=== PATIENT | female | born 1985 | race Caucasian/White ===

== ENCOUNTER → 2018-06-08 | Outpatient (CLI) | payer OTHER ==
[2018-06-08 11:24] LABS: HCT 37.5 % (34.0-46.0); HGB 12.5 gm/dL (11.4-16.0); MCHC 33.2 g/dL (31.0-37.0); MCV 87.3 fL (80.0-100.0); Mean Platelet Volume 6.8; Platelet Count 344 k/uL (150-450); RDW 12.5 % (11.5-15.5); WBC 10.6 k/uL (3.8-10.6)
[2018-06-08 11:40] LABS: Glucose 81 mg/dL (74-99)
--- NOTE | 2018-06-08 16:04 | US ---
EXAMINATION TYPE: Transabdominal DATE OF EXAM: 11/03/17 COMPARISON: NONE CLINICAL HISTORY: Z36 CONFIRM DATES. EXAM PERFORMED: Transvaginal (TV) and Transabdominal (TA) EXAM MEASUREMENTS: GESTATIONAL AGE / DATING Physician Established: not established Dates by LMP: (9 weeks/3 days) EDC: 01/08/2019 Dates by First Scan: no prior Dates by Current Scan for: (9 weeks/ 0 days) EDC: 01/11/2019 MATERNAL ANATOMY Uterus: 8.3 x 6.4 x 7.7 cm Right Ovary: 3.3 x 2.0 x 2.9 cm Left Ovary: 2.4 x 1.4 x 2.2 cm Post CDS / Adnexa: wnl Presence of free fluid: wnl Presence of corpus luteal cyst: no Presence of subchorionic bleed: no GESTATION / SURVEY CRL: 2.1 cm (8 weeks/5 days) MSD: 4.0 (9 weeks/2 days) Yolk Sac (normal less than 6mm): 3 Heart Rate: 139 bpm Rhythm: Normal IUP: Viable IUP Date of LMP: 04/03/2018 Beta HcG (if available): na IMPRESSION: 1. Single intrauterine gestation estimated at 8 weeks 5 days gestation based on crown-rump length. Ca rdiac activity measures 139 bpm.
[2018-06-08 18:04] LABS: HIV 1 AB Non-Reactive (Non-Reactive); HIV AB P24 Non-Reactive (Non-Reactive); HIV P24 AG Non-Reactive (Non-Reactive)
[2018-06-09 05:44] LABS: Toxoplasma Antibody (IgG) <3.0 IU/mL (<7.2); Toxoplasma Antibody (IgM) <3.0 AU/mL (<8.0)
== END | disposition home or self-care (01) ==
LOC: RADUSWWP 10:34
PROVIDERS: ATTEND Obstetrics & Gynecology
DX: O26.811 Pregnancy related exhaustion and fatigue, first trimester (principal); Z3A.08 8 weeks gestation of pregnancy
CPT/HCPCS: 76801; 76817; 82565; 82947; 85027; 86762; 86777; 86778; 86780; 86850; 86900; 86901; 87340; 87390

== ENCOUNTER → 2018-08-17 | Outpatient (CLI) | payer OTHER ==
--- NOTE | 2018-08-17 15:54 | US ---
EXAMINATION TYPE: US OB anatomy transabd DATE OF EXAM: 08/17/2018 COMPARISON: US first trimester June 08, 2018. HISTORY: O36.62X0 Large for Dates,Z34.82 TECHNIQUE: Transabdominal (TA) EXAM MEASUREMENTS: GESTATIONAL AGE / DATING Physician Established: (19 weeks/3 days) EDC: 01/08/2019 Dates by LMP: (19 weeks/0 days) EDC: 01/11/2019 Dates by First Scan: (19 weeks/0 days) EDC: 01/11/2019 Dates by Current Scan for: (19 weeks/5 days) EDC: 01/06/2019 SURVEY IUP: Single PLACENTA: Posterior PREVIA: Marginal BAY: 14.8 cm Normal CERVICAL LENGTH (transabdominal: norm > 3.0cm): 3.8 cm BIOMETRY PRESENTATION: Vertex LIE: Oblique BPD: 4.5 cm 19 weeks / 5 days HC: 16.8 cm 19 weeks / 3 days AC: 14.6 cm 19 weeks / 6 days FL: 3.2 cm 19 weeks / 6 days ESTIMATED WEIGHT IN GRAMS: 317.48 grams ESTIMATED WEIGHT IN LBS/OZ: 0 lbs. 11 oz. WEIGHT PERCENTAGE BASED ON ESTABLISHED DATE: 71.2 % HC/AC: 1.15 Normal FL/AC: 21.75 Normal HEART RATE: 154 bpm RHYTHM: Normal ANATOMY SEEN (within normal limits): * Lateral Vent (< 1 cm) 0.6 cm * Cisterna Magna (< 1.1 cm) 0.26 cm * Nuchal Fold (< 0.6 cm) 0.48 cm * Cerebellum (varies with age) 2.07 cm Choroid Plexus (bilateral) Midline Falx Cavus Septi Pellucidi Stomach Situs Diaphragm Kidneys (bilateral) Bladder Cord Insert Three Vessel Cord Longitudinal Spine Transverse Spine Arms (bilateral) Legs (bilateral) ANATOMY NOT SEEN: areas attempted, but patient is returning for the following after 2 techs attempte d these structures: Nose / Lips, area assessed but fetus less than 20 weeks for optimal measure. Four Chamber Heart Outflow tracts: LVOT/RVOT MATERNAL WALL MEASUREMENT: 5.02 cm from skin to anterior uterine wall (if exam limited due to body h abitus). Single live intrauterine gestation is redemonstrated. Marginal placenta is noted. Normal cephalad pre sentation to fetus is seen. No suspicious narrowing of cervix is present. Amniotic fluid index is demetrius culated within normal limits. biometry measurements are concordant and felt within normal limit s. Detailed anatomical survey shows no suspicious abnormality during real-time scanning. Some areas a re suboptimally assessed as detailed above. Saved images are felt within normal limits except for abo ve noted structures. IMPRESSION: As above, short-term follow-up ultrasound advised.
[2018-08-18 10:49] LABS: Alpha Fetoprotein (M.O.M) 0.97; B-HCG (M.O.M.) 1.96; Gestational Age (days) 3; Human Chorionic Gonadotropin 29.8 IU/mL; Inhibin A (M.O.M.) 1.04; Maternal Age at EDD (Yrs) 34; Smoker No; Unconjugated Estriol (M.O.M.) 0.76
== END ==
LOC: RADUSWWP 13:51
PROVIDERS: ATTEND Obstetrics & Gynecology
DX: O36.62X0 Maternal care for excessive fetal growth, second trimester, not applicable or unspecified (principal); Z3A.20 20 weeks gestation of pregnancy
CPT/HCPCS: 76811; 82105; 82677; 84702; 86336

== ENCOUNTER → 2018-08-30 | Outpatient (CLI) | payer OTHER ==
--- NOTE | 2018-08-30 12:36 | US ---
EXAMINATION TYPE: US OB Call Back DATE OF EXAM: 08/30/2018 COMPARISON: NONE CLINICAL HISTORY: OB CALL BACK. GESTATIONAL AGE / DATING Dates by Initial Survey Scan: (21 weeks/2 days) EDC: 04/03/2019 HEART RATE: 153 bpm RHYTHM: Normal ANATOMY SEEN (second anatomic survey look): Four Chamber Heart: Outflow tracts:? LVOT Nose / Lips: ANATOMY STILL NOT SEEN (may require an additional callback appt): Outflow tracts: RVOT MATERNAL WALL MEASUREMENT: 4.1 cm from skin to anterior uterine wall (if exam limited due to body pillai bitus). IMPRESSION: ANATOMY STILL NOT SEEN (may require an additional callback appt): Outflow tracts: RVOT
== END | disposition home or self-care (01) ==
LOC: RADUSWWP 11:04
PROVIDERS: ATTEND Obstetrics & Gynecology
DX: Z53.9 Procedure and treatment not carried out, unspecified reason (principal)

== ENCOUNTER 2018-12-17 10:53 | Outpatient (CLI) | payer OTHER ==
[2018-12-17 11:43] VITALS: PULSE 88; RESP 18; TEMP 97.1
[2018-12-17 11:50] LABS: Amorphous Sediment,Urine Rare /hpf; Appearance,Urine Cloudy (Clear); Bacteria,Urine Rare /hpf; Bilirubin,Urine Negative (Negative); Blood,Urine Negative (Negative); Color,Urine Yellow; Glucose,Urine (UA) Negative (Negative); Ketones,Urine Negative (Negative); Leukocyte Esterase,Urine Large (Negative); Mucus,Urine Occasional /hpf; Nitrite,Urine Negative (Negative); PH, Urine 5.5 (5.0-8.0); Protein,Urine Trace (Negative); Specific Gravity,Urine 1.018 (1.001-1.035); Squamous Epithelial Cell,Urine 9 /hpf (0-4); Urobilinogen,Urine <2.0 mg/dL (<2.0); WBC,Urine 21 /hpf (0-5)
[2018-12-17 11:58] LABS: Basophils % (A) 0 %; Eosinophils # (A) 0.1 k/uL (0-0.7); Eosinophils % (A) 1 %; HGB 11.6 gm/dL (11.4-16.0); Lymphocytes # (A) 1.8 k/uL (1.0-4.8); Lymphocytes % (A) 17 %; MCH 28.8 pg (25.0-35.0); MCHC 33.2 g/dL (31.0-37.0); MCV 86.6 fL (80.0-100.0); Mean Platelet Volume 7.5; Monocytes # (A) 0.6 k/uL (0-1.0); Monocytes % (A) 5 %; Neutrophils % (A) 74 %; Platelet Count 308 k/uL (150-450); RBC 4.04 m/uL (3.80-5.40); RDW 14.8 % (11.5-15.5); WBC 10.9 k/uL (3.8-10.6)
[2018-12-17 12:09] LABS: ALT 21 U/L (9-52); AST 20 U/L (14-36); Blood Urea Nitrogen 6 mg/dL (7-17); LDH 411 U/L (313-618); Uric Acid 4.6 mg/dL (3.7-7.4)
[2018-12-17 12:40] VITALS: BP 145/84
--- NOTE | 2018-12-17 17:19 | P.MSEPDOC ---
Presenting Problems - Arrival Data Date of Arrival on Unit: 12/17/18 Time of Arrival on Unit: 11:10 Mode of Transport: Ambulatory - Complaint OB-Reason for Admission/Chief Complaint: PIH Medical History - Information : 4 Para: 1 Term: 1 : 0 Abortions: Spontaneous or Elective: 0 Number of Living Children: 0 - Gestational Age Gestational Age by MARTHA (wks/days): 36 Weeks and 6 Days - History Complications: Other Comment: gestation hypertension Review of Systems - Review of Systems Constitutional: No problems Breast: No problems ENT: No problems Cardiovascular: No problems Respiratory: No problems Gastrointestinal: No problems Genitourinary: No problems Musculoskeletal: No problems Neurological: No problems Skin: No problems Comment: [facility] work up. blood pressure elevated in office Vital Signs - Temperature Temperature: 97.1 F Temperature Source: Temporal Artery Scan - Pulse Right Radial Pulse Rate: 88 Pulse Assessment Method: Automatic Cuff - Respirations Respiratory Rate: 18 Oxygen Delivery Method: Room Air - Blood Pressure Right Arm Blood Pressure: 145/84 Blood Pressure Mean: 104 Blood Pressure Source: Automatic Cuff Medical Screen Scoring (Pre) - Cervical Exam Dilation: Exam Deferred Effacement: Exam Deferred Membranes: Intact - Uterine Contractions Frequency: N/A Duration: N/A Intensity: N/A - Maternal Vital Signs Maternal Temperature: N/A Maternal Blood Pressure: N/A Signs of Preeclampsia: N/A Maternal Respirations: N/A - Pain Assessment Pain Scale Used: Numeric (1 - 10) Pain Intensity: 0 Pain Behavior: Vocalization - Maternal Trauma Maternal Trauma: N/A - Assessment Baseline FHR: 140 Heart Rate - NICHD Category: Category I (Normal) = 0 NST: Reactive Position: N/A Station: N/A - Total Score Total Score (Pre): 0 - Level of Risk Level of Risk: N/A Physician Notification (Pre) - Physician Notified Physician Notified Date: 12/17/18 Physician Notified Time: 11:10 Physician/Practitioner Notifed:: erasto Spoke With: erasto New Order Received: No - Notification Comment Comment: slip of orders sent from office with pt. Medical Screen Scoring (Post) - Cervical Exam Dilation: Exam Deferred Effacement: Exam Deferred Membranes: Intact - Uterine Contractions Frequency: N/A Duration: N/A Intensity: N/A - Maternal Vital Signs Maternal Temperature: N/A Maternal Blood Pressure: N/A Signs of Preeclampsia: N/A Maternal Respirations: N/A - Pain Assessment Pain Scale Used: Numeric (1 - 10) Pain Intensity: 0 Pain Behavior: Vocalization - Total Score Total Score (Post): 0 - Post Treatment Level of Risk Post Treatment Level of Risk: Low (0-5) Physician Notification (Post) - Physician Notified Physician Notified Date: 12/17/18 Physician Notified Time: 12:30 Physician/Practitioner Notified:: erasto Spoke With: erasto New Order Received: Yes (discharge home with instructions) - Notification Comment Comment: to return to office morning for nst and bp check. possible induction of labor on thursday Disposition - Disposition OB Disposition: Discharge to home Discharge Date: 12/17/18 Discharge Time: 12:35 I agree with the RN Medical Screening Exam: Yes Risk & Benefit of care provided described in d/c instruction: Yes Diagnosis: GESTATIONAL HTN W/O SIGNIFICANT PROTEINURIA, THIRD TRIMESTER
== END 2018-12-17 12:35 | disposition home or self-care (01) ==
LOC: FBPOP 10:53
PROVIDERS: ATTEND Obstetrics & Gynecology
DX: O13.3 Gestational [pregnancy-induced] hypertension without significant proteinuria, third trimester (principal); Z3A.36 36 weeks gestation of pregnancy
CPT/HCPCS: 59025; 82570; 84156; 82565; 83615; 84450; 84460; 84520; 84550; 85025; 81001; G0463; 99215

== ENCOUNTER 2018-12-21 05:55 | Inpatient (IN) | payer OTHER ==
[2018-12-21] MEDS: LACTATED RINGERS 1,000 ML IV SCH ×3 (06:16→13:42)
[2018-12-21] MEDS ORDERED: OXYTOCIN 10 UNIT/ML 1 ML VIAL IM PRN (06:23)
[2018-12-21] MEDS ORDERED: LIDOCAINE 0.5% (PF) 5 MG/ML (50 ML SDV) SQ PRN (06:23)
[2018-12-21] MEDS ORDERED: AMPICILLIN 2,000 MG in SODIUM CHLORIDE 0.9% 100 ML IVPB STA (06:23)
[2018-12-21] MEDS ORDERED: CARBOPROST TROMETHAMINE 250 MCG/ML 1 ML AMP IM PRN (06:23)
[2018-12-21] MEDS ORDERED: METHYLERGONOVINE 0.2 MG/ML 1 ML AMP IM PRN (06:23)
[2018-12-21] MEDS ORDERED: TERBUTALINE 1 MG/ML VIAL SQ PRN (06:23)
[2018-12-21] MEDS ORDERED: OXYTOCIN 30 UNITS/500 ML NS 30 UNIT in SALINE 1 500ML.BAG IV SCH (06:30)
[2018-12-21] MEDS ORDERED: LACTATED RINGERS 1,000 ML IV SCH (06:30)
[2018-12-21 06:39] VITALS: BMI 44.1
[2018-12-21 06:59] LABS: Basophils % (A) 0 %; Eosinophils # (A) 0.2 k/uL (0-0.7); Eosinophils % (A) 1 %; HCT 36.1 % (34.0-46.0); HGB 11.8 gm/dL (11.4-16.0); Lymphocytes # (A) 2.6 k/uL (1.0-4.8); Lymphocytes % (A) 19 %; MCH 28.1 pg (25.0-35.0); MCHC 32.8 g/dL (31.0-37.0); MCV 85.8 fL (80.0-100.0); Mean Platelet Volume 7.5; Monocytes # (A) 0.7 k/uL (0-1.0); Monocytes % (A) 5 %; Neutrophils # (A) 10.1 k/uL (1.3-7.7); Neutrophils % (A) 72 %; Platelet Count 349 k/uL (150-450); RBC 4.21 m/uL (3.80-5.40); RDW 14.6 % (11.5-15.5)
[2018-12-21] MEDS: AMPICILLIN 1,000 MG in SODIUM CHLORIDE 0.9% 50 ML IVPB SCH ×3 (10:27→18:38)
[2018-12-21] MEDS ORDERED: SODIUM CHLORIDE 0.9% 100 ML BAG ONE (13:15)
[2018-12-21] MEDS ORDERED: ROPIVACAINE 5MG/ML 20ML VIAL ONE (13:15)
[2018-12-21] MEDS ORDERED: fentaNYL (PF) 50 MCG/ML 5 ML AMP ONE (13:15)
[2018-12-21] MEDS ORDERED: CITRIC ACID-SODIUM CITRATE 15 ML CUP PO ONE (22:22)
[2018-12-21] MEDS ORDERED: ceFAZolin IN SWFI 2 GM/20 ML SYRINGE IVP ONE (22:22)
[2018-12-21] MEDS ORDERED: fentaNYL (PF) 50 MCG/ML 2 ML AMP ONE (22:44)
[2018-12-21] MEDS ORDERED: ONDANSETRON 4 MG/2 ML VIAL ONE (22:44)
[2018-12-21] MEDS ORDERED: KETOROLAC 30 MG/ML 1 ML VIAL ONE (22:44)
[2018-12-21] MEDS ORDERED: CHLOROPROCAINE 3% 30 MG/ML 20 ML VIAL ONE (22:44)
[2018-12-21] MEDS ORDERED: IBUPROFEN 600 MG TAB PO PRN (23:21)
[2018-12-21] MEDS ORDERED: METOCLOPRAMIDE 5 MG/ML 2 ML VIAL IVP PRN (23:21)
[2018-12-21] MEDS ORDERED: diphenhydrAMINE 25 MG CAP PO PRN (23:21)
[2018-12-21] MEDS ORDERED: ACETAMINOPHEN TAB 325 MG TAB PO PRN (23:21)
[2018-12-21] MEDS ORDERED: diphenhydrAMINE 50 MG CAP PO PRN (23:21)
[2018-12-21] MEDS ORDERED: NALOXONE 0.4 MG/ML 1 ML VIAL IV PRN ×2 (23:21→23:28)
[2018-12-21] MEDS ORDERED: ZOLPIDEM 5 MG TAB PO PRN (23:21)
[2018-12-21] MEDS ORDERED: diphenhydrAMINE 50 MG/ML 1 ML VIAL IVP PRN ×2 (23:21)
[2018-12-21] MEDS ORDERED: HYDROcodone/APAP 7.5-325MG 1 EACH TAB PO PRN (23:21)
[2018-12-21] MEDS ORDERED: ONDANSETRON 4 MG/2 ML VIAL IVP PRN (23:21)
[2018-12-21] MEDS ORDERED: SIMETHICONE 80 MG CHEWABLE PO PRN (23:21)
[2018-12-21] MEDS ORDERED: HYDROMORPHONE (PF) 10 MG in SODIUM CHLORIDE 0.9% 49 ML IV PRN (23:28)
--- NOTE | 2018-12-21 23:28 | P.OP ---
Date of Procedure: 12/21/18 Preoperative Diagnosis: 1. at 37 weeks 3 days 2. arrest of descent 3. occiput posterior 4. gestational hypertension Postoperative Diagnosis: 1. at 37 weeks 3 days 2. arrest of descent 3. occiput posterior 4. gestational hypertension Procedure(s) Performed: Primary low transverse Anesthesia: spinal Surgeon: Jazmin Mills Semiconductor Engineer #1: Joleen Gu Estimated Blood Loss (ml): 600 IV fluids (ml): 700 Urine output (ml): 100 Pathology: other (Placenta) Condition: stable Disposition: floor Indications for Procedure: 33-year-old presented at 37 weeks and 3 days for induction of labor due to gestational hypertension. Her cervix was 3-4 centers dilated, 70% effaced, and -2 station. She was gautam irregularly. heart tones 130s with moderate variability and reactive, category 1 tracing. Amniotomy was performed at 7:45 AM and clear fluid noted. Pitocin had already been started. She progressed throughout the day and when she was uncomfortable she did get an epidural. She progressed to anterior lip, pushed a few times but was unable to reduce this anterior lip. The baby was not moving in the pelvis despite adequate pushing and contractions, and the baby was known to be an OP position. Informed consent was obtained and section was called. Operative Findings: Viable male, Apgars 9, 9, weight 7 lbs. 9 oz. Normal uterus, tubes, ovaries. Description of Procedure: Patient was taken to the operating room where epidural anesthesia was found be adequate. She was prepped and draped in normal sterile fashion in dorsal supine position with a leftward tilt. Pfannenstiel skin incision was made the scalpel and carried through to the underlying layer of fascia with the scalpel. Fascia was incised in midline and carried bilaterally with the Enciso scissors. The superior aspect of the fascial incision was grasped with Panna Maria clamps elevated and the underlying rectus muscles dissected off with the Enciso's. Attention was then turned to inferior aspect of same incision which in a similar fashion was grasped tented up and the underlying rectus muscles dissected off with the Enciso's. The rectus muscles were the midline and the peritoneum was identified tented up and entered sharply with the scalpel. The incision was extended superiorly and inferiorly with good visualization of the bladder. The bladder blade was inserted and the vesicouterine peritoneum was incised the Metzenbaums then carried bilaterally and bladder flap created digitally. A low transverse incision was then made on the uterus with the scalpel. This was carried bilaterally and digital manner. 's head delivered atraumatically, nose and mouth bulb suctioned, cord clamped and cut, infant handed off to waiting nurses. Apgars 9,9, weight 7 lbs. 9 oz. Placenta delivered manually, intact with three-vessel cord. The uterus is exteriorized and cleared of all clots and debris. The uterine incision was closed with 0 Vicryl in a running locked fashion. Second layer of the same sutures used in imbricating fashion to obtain excellent hemostasis. Bladder flap was then reapproximated using 2-0 Kristofer ryl in a running fashion. Both ovaries and tubes appeared normal. The uterus was placed back into the abdomen. The peritoneum was reapproximated using 2-0 Vicryl in a running fashion. The fascia was reapproximated using 0 Vicryl in a running fashion. The subcutaneous tissues closed with 3-0 Vicryl running fashion. The skin was closed kevin. Patient tolerated the procedure well, sponge and instrument counts were correct times 2 and she was taken to the recovery room in stable condition.
[2018-12-21] MEDS ORDERED: OXYTOCIN 20 UNITS/1000 ML NS 1,000 ML IV SCH (23:30)
[2018-12-22 05:43] LABS: Basophils % (A) 0 %; Eosinophils # (A) 0.1 k/uL (0-0.7); Eosinophils % (A) 1 %; HCT 31.3 % (34.0-46.0); HGB 10.3 gm/dL (11.4-16.0); Lymphocytes # (A) 1.4 k/uL (1.0-4.8); Lymphocytes % (A) 9 %; MCH 28.3 pg (25.0-35.0); MCHC 32.7 g/dL (31.0-37.0); MCV 86.6 fL (80.0-100.0); Mean Platelet Volume 7.3; Monocytes # (A) 0.7 k/uL (0-1.0); Monocytes % (A) 4 %; Neutrophils # (A) 13.3 k/uL (1.3-7.7); Neutrophils % (A) 84 %; Platelet Count 309 k/uL (150-450); RBC 3.62 m/uL (3.80-5.40); RDW 14.2 % (11.5-15.5); WBC 15.7 k/uL (3.8-10.6)
--- NOTE | 2018-12-22 07:38 | P.HPOB ---
History of Present Illness H&P Date: 12/22/18 Chief Complaint: Induction of labor, gestational hypertension 33 year old presents at 37 weeks 3 days for induction of labor. HEr cervix was 3/70/-2 and she was gautam irregularly. heart tones 130s with moderate variability and reactive. Review of Systems All systems: negative Constitutional: Denies chills, Denies fever Eyes: denies blurred vision, denies pain Ears, nose, mouth and throat: Denies headache, Denies sore throat Cardiovascular: Denies chest pain, Denies shortness of breath Respiratory: Denies cough Gastrointestinal: Denies abdominal pain, Denies diarrhea, Denies nausea, Denies vomiting Genitourinary: Denies dysuria, Denies hematuria Musculoskeletal: Denies myalgias Integumentary: Denies pruritus, Denies rash Neurological: Denies numbness, Denies weakness Psychiatric: Denies anxiety, Denies depression Endocrine: Denies fatigue, Denies weight change Past Medical History Past Medical History: Thyroid Disorder Additional Past Medical History / Comment(s): OB history: First was elective , second full-term vaginal delivery 7 lbs. 14 oz., third elective , this is her fourth . She has had care with nd since 8 weeks. Blood type O+, antibodies negative, rubella immune, treponemal antibody negative, HIV nonreactive, hep is B-, HIV nonreactive, toxoplasmosis negative. GBS positive. She's had some elevated blood pressures throughout the and is seen [facility] as well. History of Any Multi-Drug Resistant Organisms: None Reported Past Surgical History: No Surgical Hx Reported Additional Past Surgical History / Comment(s): Wrist surgery Past Anesthesia/Blood Transfusion Reactions: No Reported Reaction Past Psychological History: Anxiety, Depression Smoking Status: Former smoker Past Alcohol Use History: Occasional Past Drug Use History: Marijuana - Past Family History Mother Family Medical History: No Reported History Medications and Allergies Home Medications Medication Instructions Recorded Confirmed Type Pnv,Calcium 72/Iron/Folic Acid 1 each PO DAILY 12/17/18 12/21/18 History [ Plus Tablet] Aspirin [Children's Aspirin] 1 tab PO ONCE 12/21/18 12/21/18 History Allergies Allergy/AdvReac Type Severity Reaction Status Date / Time No Known Allergies Allergy Verified 12/17/18 11:20 Exam Osteopathic Statement: *. No significant issues noted on an osteopathic structural exam other than those noted in the History and Physical/Consult. Vital Signs Temp Pulse Resp BP Pulse Ox 12/22/18 04:00 97.2 F L 62 14 103/59 96 12/22/18 01:34 96.7 F L 96 16 142/67 96 12/22/18 01:04 97.6 F 95 16 142/69 96 12/22/18 00:30 98.1 F 99 16 160/74 98 12/22/18 00:19 97.5 F L 99 16 145/66 95 12/22/18 00:04 97.6 F 90 16 145/68 100 12/22/18 00:00 97.1 F L 90 16 145/68 100 12/21/18 23:49 97.2 F L 103 H 16 134/58 98 12/21/18 23:34 97.6 F 116 H 16 107/49 98 12/21/18 23:30 98 Intake and Output 12/21/18 12/22/18 12/22/18 22:59 06:59 14:59 Output Total 200 Balance -200 Output: Urine 200 Other: Voiding Method Indwelling Catheter # Voids 3 Heart: Regular rate and rhythm Lungs: Clear to auscultation bilaterally Abdomen: Soft, nontender Extremities: Negative Homans sign Results Result Diagrams: 12/22/18 05:28 Abnormal Lab Results - Last 24 Hours (Table) 12/22/18 Range/Units 05:28 WBC 15.7 H (3.8-10.6) k/uL RBC 3.62 L (3.80-5.40) m/uL Hgb 10.3 L (11.4-16.0) gm/dL Hct 31.3 L (34.0-46.0) % Neutrophils # 13.3 H (1.3-7.7) k/uL Assessment and Plan (1) Normal labor Current Visit: Yes Status: Acute Code(s): O80 - ENCOUNTER FOR FULL-TERM UNCOMPLICATED DELIVERY; Z37.9 - OUTCOME OF DELIVERY, UNSPECIFIED SNOMED Code(s): 83175921 Plan: 1. Induction of labor with amniotomy and Pitocin 2. Anticipate normal vaginal delivery
--- NOTE | 2018-12-22 07:39 | P.PNOBGPC ---
Subjective - Subjective Principal diagnosis: Status post primary low transverse postop day #1 Interval history: Patient seen and examined. Denies nausea, vomiting, chest pain, shortness of breath or calf pain. Her pain is well-controlled with TACTICAL RESPONSE GROUP OFFICER. Patient reports: Reports appetite normal, Reports voiding normally, Reports pain well controlled, Reports ambulating normally [place]: doing well Objective - Vital Signs Latest vital signs: Vital Signs Temp Pulse Resp BP Pulse Ox 12/22/18 04:00 97.2 F L 62 14 103/59 96 12/22/18 01:34 96.7 F L 96 16 142/67 96 12/22/18 01:04 97.6 F 95 16 142/69 96 12/22/18 00:30 98.1 F 99 16 160/74 98 12/22/18 00:19 97.5 F L 99 16 145/66 95 12/22/18 00:04 97.6 F 90 16 145/68 100 12/22/18 00:00 97.1 F L 90 16 145/68 100 12/21/18 23:49 97.2 F L 103 H 16 134/58 98 12/21/18 23:34 97.6 F 116 H 16 107/49 98 12/21/18 23:30 98 Intake and Output 12/21/18 12/22/18 12/22/18 22:59 06:59 14:59 Output Total 200 Balance -200 Output: Urine 200 Other: Voiding Method Indwelling Catheter # Voids 3 - Exam Lungs: bilateral: normal Chest: Normal S1, Normal S2 Extremities: Present: normal Abdomen: Present: normal appearance, soft. Absent: distention, tenderness Incision: Present: normal, dry, intact Uterus: Present: normal, firm - Labs Labs: Abnormal Lab Results - Last 24 Hours (Table) 12/22/18 Range/Units 05:28 WBC 15.7 H (3.8-10.6) k/uL RBC 3.62 L (3.80-5.40) m/uL Hgb 10.3 L (11.4-16.0) gm/dL Hct 31.3 L (34.0-46.0) % Neutrophils # 13.3 H (1.3-7.7) k/uL Assessment and Plan (1) Normal labor Current Visit: Yes Status: Resolved Code(s): O80 - ENCOUNTER FOR FULL-TERM UNCOMPLICATED DELIVERY; Z37.9 - OUTCOME OF DELIVERY, UNSPECIFIED SNOMED Code(s): 40716256 (2) Status post primary low transverse section Current Visit: Yes Status: Acute Code(s): Z98.891 - HISTORY OF UTERINE SCAR FROM PREVIOUS SURGERY SNOMED Code(s): 606958594 Plan: 1. DC TACTICAL RESPONSE GROUP OFFICER, oral pain meds 2. Increase ambulation 3. Advanced diet 4. Continue postoperative care
[2018-12-22] MEDS: SENNOSIDES-DOCUSATE SODIUM 1 EACH TAB PO SCH ×2 (08:38→20:00)
[2018-12-22] MEDS: KETOROLAC 30 MG/ML 1 ML VIAL IVP PRN ×2 (11:10→17:26)
[2018-12-22] MEDS: LACTATED RINGERS 1,000 ML IV SCH ×2 (22:23→22:24)
[2018-12-23] MEDS: KETOROLAC 30 MG/ML 1 ML VIAL IVP PRN
[2018-12-23] MEDS: SENNOSIDES-DOCUSATE SODIUM 1 EACH TAB PO SCH (09:30)
[2018-12-23 09:52] VITALS: BP 141/81; PULSE 95; RESP 16; TEMP 95
--- NOTE | 2018-12-23 12:49 | P.DS ---
Providers Date of admission: 12/21/18 05:55 Expected date of discharge: 12/23/18 Attending physician: Jazmin Mills Primary care physician: Stated None - Discharge Diagnosis(es) (1) Normal labor Current Visit: Yes Status: Resolved (2) Status post primary low transverse section Current Visit: Yes Status: Acute Hospital Course: Pt presented for induction of labor. She underwent a primary low transverse c- section for arrest of descent and OP position. Her po course was uncomplicated. She will be discharged home PPD #2 in stable condition to follow up with me in 1 week. Plan - Discharge Summary New Discharge Prescriptions: New Ibuprofen [Motrin] 600 mg PO Q6HR PRN #30 tab PRN Reason: Mild Pain Or Fever >= 100.5 HYDROcodone/APAP 7.5-325MG [[facility] 7.5-325] 1 each PO Q4H PRN #18 tab PRN Reason: Severe Pain No Action Pnv,Calcium 72/Iron/Folic Acid [ Plus Tablet] 1 each PO DAILY Aspirin [Children's Aspirin] 1 tab PO ONCE Discharge Medication List Pnv,Calcium 72/Iron/Folic Acid [ Plus Tablet] 1 each PO DAILY 12/17/18 [History] Aspirin [Children's Aspirin] 1 tab PO ONCE 12/21/18 [History] HYDROcodone/APAP 7.5-325MG [[facility] 7.5-325] 1 each PO Q4H PRN #18 tab 12/23/18 [Rx] Ibuprofen [Motrin] 600 mg PO Q6HR PRN #30 tab 12/23/18 [Rx] Follow up Appointment(s)/Referral(s): Jazmin Mills DO [Doctor of Osteopathic Medicine] - 1 Week Discharge Disposition: HOME SELF-CARE
== END 2018-12-23 14:28 | disposition home or self-care (01) | DRG 788 ==
LOC: 4FBP 05:55
PROVIDERS: ADMIT Obstetrics & Gynecology; ATTEND Obstetrics & Gynecology
PROC: 10907ZC Drainage of Amniotic Fluid, Therapeutic from Products of Conception, Via Natural or Artificial Opening (ICD-10-PCS; 2018-12-21)
PROC: 3E033VJ Introduction of Other Hormone into Peripheral Vein, Percutaneous Approach (ICD-10-PCS; 2018-12-21)
PROC: 00HU33Z Insertion of Infusion Device into Spinal Canal, Percutaneous Approach (ICD-10-PCS; 2018-12-21)
PROC: 3E0R3BZ Introduction of Anesthetic Agent into Spinal Canal, Percutaneous Approach (ICD-10-PCS; 2018-12-21)
PROC: 10D00Z1 Extraction of Products of Conception, Low, Open Approach (ICD-10-PCS; principal; 2018-12-21 06:00)
DX: O13.4 Gestational [pregnancy-induced] hypertension without significant proteinuria, complicating childbirth (principal); O62.1 Secondary uterine inertia; O99.344 Other mental disorders complicating childbirth; F32.9 Major depressive disorder, single episode, unspecified; F41.9 Anxiety disorder, unspecified; O99.824 Streptococcus B carrier state complicating childbirth; O99.284 Endocrine, nutritional and metabolic diseases complicating childbirth; E07.9 Disorder of thyroid, unspecified; O99.62 Diseases of the digestive system complicating childbirth; K21.9 Gastro-esophageal reflux disease without esophagitis; Z37.0 Single live birth; Z3A.37 37 weeks gestation of pregnancy; Z87.891 Personal history of nicotine dependence
CPT/HCPCS: 85025; 86850; 86900; 86901; 88307

== ENCOUNTER → 2022-01-09 | Outpatient (CLI) | payer OTHER ==
[2022-01-09 15:59] LABS: ALT 12 U/L (8-44); AST 12 U/L (13-35); African American GFR (CKD) 138.9 (60.0-200.0); Albumin 4.1 g/dL (3.8-4.9); Albumin/Globulin Ratio 1.72 (1.60-3.17); Alkaline Phosphatase 80 U/L (41-126); BUN/Creat Ratio 14.22 Ratio (12.00-20.00); Blood Urea Nitrogen 7.8 mg/dL (9.0-27.0); Calcium 9.1 mg/dL (8.7-10.3); Carbon Dioxide 22.8 mmol/L (20.0-27.5); Chloride 105 mmol/L (96-109); Chol/HDL Ratio 3.82 Ratio; Globulin 2.4 g/dL (1.6-3.3); Glucose 98 mg/dL (70-110); LDL Cholesterol,Calculated 104.4 mg/dL (0.0-131.0); Non-African American GFR(CKD) 119.8 (60.0-200.0); Potassium 4.3 mmol/L (3.5-5.5); Sodium 138 mmol/L (135-145); Total Protein 6.4 g/dL (6.2-8.2)
[2022-01-09 16:22] LABS: Basophils # (A) 0.04 X 10*3/uL (0.00-0.10); Basophils % (A) 0.4 %; Eosinophils # (A) 0.33 X 10*3/uL (0.04-0.35); Eosinophils % (A) 3.5 %; HGB 13.1 g/dL (12.0-15.0); Immature Grans, Automated 0.3 %; Lymphocytes # (A) 2.94 X 10*3/uL (0.90-5.00); Lymphocytes % (A) 31.5 %; MCH 28.4 pg (27.0-32.0); MCHC 32.8 g/dL (32.0-37.0); MCV 86.6 fL (80.0-97.0); Monocytes # (A) 0.84 X 10*3/uL (0.20-1.00); NRBC Per 100 WBC 0 /100 WBCS (0.0-0.0); Neutrophils # (A) 5.15 X 10*3/uL (1.80-7.70); Neutrophils % (A) 55.3 %; Platelet Count 364 X 10*3/uL (140-440); RBC 4.62 X 10*6/uL (4.10-5.20); RDW 13.6 % (11.5-14.5); WBC 9.33 X 10*3/uL (4.50-10.00)
== END | disposition home or self-care (01) ==
LOC: LABWHC1 08:28
PROVIDERS: ATTEND Family Medicine
DX: E03.9 Hypothyroidism, unspecified (principal); E55.9 Vitamin D deficiency, unspecified
CPT/HCPCS: 36415; 80053; 80061; 82306; 84439; 84443; 84481; 85025